=== PATIENT | male | born 1950 | race Caucasian/White ===

== ENCOUNTER → 2016-10-25 | Outpatient (CLI) | payer MEDICARE, OTHER | LOC: RAD 10:27 | PROVIDERS: ATTEND Orthopaedic Surgery | DX: M25.511 Pain in right shoulder (principal) ==

== ENCOUNTER 2017-01-12 09:29 | Emergency (ER) | payer MEDICARE, OTHER ==
[2017-01-12 09:36] VITALS: BP 141/79
--- NOTE | 2017-01-12 10:06 | ER Document Report ---
HPI - HPI Patient complains to provider of: Rash Onset: Last week Onset/Duration: Intermittent Pain Level: 2 Context: 66-year-old diabetic male started Lantus and has finally associated the itchy rash with Lantus. He takes oral medication for diabetes [place] When he went back for the first time they gave him a steroid shot and antihistamines which seemed to help. The second time when he told him he thought it was the Lantus they prescribed Khushboo Zantac and Singulair. The rash has persisted and can't stand the itching anymore. Associated Symptoms: None Exacerbated by: Denies Relieved by: Other - Steroid - ROS ROS below otherwise negative: Yes Systems Reviewed and Negative: Yes All other systems reviewed and negative - REPRODUCTIVE Reproductive: DENIES: : - DERM Skin Color: Normal Past Medical History - General Information source: Patient - Social History Smoking Status: Never Smoker Frequency of alcohol use: None Drug Abuse: None Lives with: Family Family History: Reviewed & Not Pertinent - Past Medical History Cardiac Medical History: Reports: Hx Heart Attack - "stress related" 2000, Hx Hypercholesterolemia, Hx Hypertension - 5 years-takes meds, Hx Heart Murmur - Pulmonary Medical History: Reports: Hx COPD - No problems since stopped smoking , Hx Pneumonia - "walking pneumonia" , Hx Sleep Apnea - CPAP Endocrine Medical History: Reports: Hx Diabetes Mellitus Type 2 Renal/ Medical History: Reports: Hx Kidney Stones GI Medical History: Reports: Hx Gastroesophageal Reflux Disease - 10 years- takes meds Musculoskeltal Medical History: Reports Hx Arthritis Psychiatric Medical History: Reports: Hx Post Traumatic Stress Disorder - " under control" Traumatic Medical History: Reports: Hx Fractures - right ankle Past Surgical History: Reports: Hx Herniorrhaphy - right inguinal, Hx Orthopedic Surgery - Right Knee and Right Ankle - Immunizations Hx Pneumococcal Vaccination: 02/15/14 Vertical Provider Document - CONSTITUTIONAL Agree With Documented VS: Yes Exam Limitations: No Limitations - INFECTION CONTROL TRAVEL OUTSIDE OF THE [place] IN LAST 30 DAYS: No - HEENT HEENT: Normocephalic. negative: Conjuctival Injection - NECK Neck: Supple - RESPIRATORY Respiratory: Breath Sounds Normal, No Respiratory Distress O2 Sat by Pulse Oximetry: 96 - CARDIOVASCULAR Cardiovascular: Regular Rate, Regular Rhythm - MUSCULOSKELETAL/EXTREMETIES Musculoskeletal/Extremeties: MAEW - NEURO Level of Consciousness: Awake, Alert, Appropriate - DERM Integumentary: Rash - drug rash trunk Course - Vital Signs Vital signs: Temp Pulse Resp BP Pulse Ox 98.5 F 83 20 141/79 H 96 01/12/17 09:36 01/12/17 09:36 01/12/17 09:36 01/12/17 09:36 01/12/17 09:36 Discharge - Discharge Clinical Impression: Drug rash Condition: Good Disposition: HOME, SELF-CARE Instructions: Use of Diphenhydramine, Steroid Medication, Acute Allergic Reaction to Drugs ([facility]) Additional Instructions: benadryl before bed is stronger than the khushboo that you take during the day strict diabetic diet this while on the steroid see your doctor on saturday as planned stop the lantus which you have already done to er any concerns Please complete the patient satisfaction survey if you get one, and return it.. If you do not receive a survey, then you can go to the [facility] website, [email or web address] and place your comments about your very good care. Thank you very much. It was a pleasure being your medical provider today. Prescriptions: Prednisone [Deltasone 10 mg Tablet] 10 mg PO ASDIR PRN #15 tablet PRN Reason:
[2017-01-12] MEDS ORDERED: PREDNISONE 20 MG TABLET PO ONE (10:20)
== END 2017-01-12 10:30 | disposition home or self-care (01) ==
LOC: ER 09:29
DX: R21 Rash and other nonspecific skin eruption (principal); E11.9 Type 2 diabetes mellitus without complications
CPT/HCPCS: 99283; 82962; A9270; J7512

== ENCOUNTER → 2019-05-19 | Outpatient (CLI) | payer MEDICARE, OTHER ==
--- NOTE | 2019-05-19 14:11 | RADIOLOGY REPORT (SQ) ---
EXAM DESCRIPTION: CAROTID DOPPLER COMPLETED DATE/TIME: 05/19/2019 1:56 pm REASON FOR STUDY: AMAUROSIS FUGAX G45.3 AMAUROSIS FUGAX COMPARISON: None. TECHNIQUE: Grayscale ultrasound, Doppler velocity and spectra, and color Doppler images acquired of the extra-cranial carotid and vertebral arteries. Images stored on PACS. LIMITATIONS: None. FINDINGS: RIGHT CAROTID CCA Velocities: Within normal limits. ICA Velocities Peak systolic 0.58 m/s. End diastolic 0.16 m/s. Proximal ICA/CCA peak systolic ratio 1.1. Spectral normal. No significant plaque. LEFT CAROTID CCA Velocities: Within normal limits. ICA Velocities Peak systolic 0.74 m/s. End diastolic 0.25 m/s. Proximal ICA/CCA peak systolic ratio 1.1. Spectra normal. No significant plaque. VERTEBRAL ARTERIES: Antegrade flow. Normal waveforms. SUBCLAVIAN ARTERIES: No finding. OTHER: No other significant finding. IMPRESSION: NO HEMODYNAMICALLY SIGNIFICANT STENOSIS. COMMENT: Quality ID #[id number]: Velocity criteria are extrapolated from the diameter data as defined by t he Society of Radiologists in Ultrasound Consensus Conference. Radiology 2003: 229; 340-346. TECHNICAL DOCUMENTATION: JOB ID: [id number] [employer]- All Rights Reserved Reading location - IP/workstation name: [email or web address]
== END ==
LOC: SP 12:12
PROVIDERS: ATTEND Ophthalmology
DX: G45.3 Amaurosis fugax (principal)
CPT/HCPCS: 93880

== ENCOUNTER 2019-06-20 15:12 | Emergency (ER) | payer MEDICARE, OTHER ==
[2019-06-20] MEDS ORDERED: ACETAMINOPHEN 325 MG TABLET PO ONE (16:52)
--- NOTE | 2019-06-20 17:17 | ER Document Report ---
HPI - HPI Time Seen by Provider: 06/20/19 16:48 Context: Patient is a 68-year-old male who presents emergency department with a chief complaint of left-sided rib pain. Patient had tripped over his feet and fell. He had his phone in his left breast pocket. States he fell on top of there. He states that when he takes a deep breath then, he has pain. He is currently on aspirin, but is not on Coumadin, Xarelto, or any other major blood thinners. Denies any loss of consciousness. Denies hitting his head. - CONSTITUTIONAL Constitutional: DENIES: Fever, Chills - EENT EENT: DENIES: Sore Throat, Ear Pain - NEURO Neurology: DENIES: Headache, Weakness - CARDIOVASCULAR Notes: Chest wall pain on left side - GASTROINTESTINAL Gastrointestinal: DENIES: Abdominal Pain, Nausea, Patient vomiting - REPRODUCTIVE Reproductive: DENIES: : Past Medical History - General Information source: Patient - Social History Smoking Status: Never Smoker Family History: Reviewed & Not Pertinent - Past Medical History Cardiac Medical History: Reports: Hx Heart Attack - "stress related" 2000, Hx Hypercholesterolemia, Hx Hypertension - 5 years-takes meds, Hx Heart Murmur - Denies: Hx Atrial Fibrillation, Hx Congestive Heart Failure, Hx Coronary Artery Disease, Hx Peripheral Vascular Disease, Hx Pulmonary Embolism Pulmonary Medical History: Reports: Hx COPD - No problems since stopped smoking, Hx Pneumonia - "walking pneumonia" , Hx Sleep Apnea - CPAP Denies: Hx Asthma, Hx Bronchitis, Hx Respiratory Failure, Hx Tuberculosis Endocrine Medical History: Reports: Hx Diabetes Mellitus Type 2. Denies: Hx Graves' Disease, Hx Hyperthyroidism, Hx Hypothyroidism Renal/ Medical History: Reports: Hx Kidney Stones. Denies: Hx Benign Prostatic Hyperplasia, Hx End Stage Renal Disease, Hx Peritoneal Dialysis Malignancy Medical History: Denies Hx Lung Cancer GI Medical History: Reports: Hx Gastroesophageal Reflux Disease - 10 years-takes meds. Denies: Hx Crohn's Disease, Hx Hiatal Hernia, Hx Liver Failure, Hx Pancreatitis, Hx Ulcer Musculoskeletal Medical History: Reports Hx Arthritis, Denies Hx Fibromyalgia, Denies Hx Muscular Dystrophy, Denies Hx Systemic Lupus Erythematosus Psychiatric Medical History: Reports: Hx Post Traumatic Stress Disorder - "under control" Denies: Hx Bipolar Disorder, Hx Depression, Hx Schizophrenia Traumatic Medical History: Reports: Hx Fractures - right ankle Past Surgical History: Reports: Hx Herniorrhaphy - right inguinal, Hx Orthopedic Surgery - Right Knee and Right Ankle. Denies: Hx Appendectomy, Hx Bowel Surgery, Hx Cholecystectomy, Hx Colostomy, Hx Coronary Artery Bypass Graft, Hx Gastric Bypass Surgery, Hx Pacemaker, Hx Tonsillectomy - Immunizations Hx Pneumococcal Vaccination: 02/15/14 Vertical Provider Document - CONSTITUTIONAL Agree With Documented VS: Yes Exam Limitations: No Limitations General Appearance: No Apparent Distress, Obese - INFECTION CONTROL TRAVEL OUTSIDE OF THE [place] IN LAST 30 DAYS: No - HEENT HEENT: Atraumatic, Normocephalic, PERRLA - NECK Neck: Normal Inspection - RESPIRATORY Respiratory: Breath Sounds Normal, No Respiratory Distress. negative: Chest Non-Tender - Tenderness to left anterior lateral rib, where patient fell - CARDIOVASCULAR Cardiovascular: Regular Rate, Regular Rhythm, No Murmur Pulses: Normal: Radial - GI/ABDOMEN Gastrointestinal: Abdomen Soft, Abdomen Non-Tender - MUSCULOSKELETAL/EXTREMETIES Musculoskeletal/Extremeties: FROM - NEURO Level of Consciousness: Awake, Alert, Appropriate Motor/Sensory: No Motor Deficit, No Sensory Deficit - DERM Integumentary: Warm, Dry, No Rash Course - Re-evaluation Re-evalutation: 06/20/19 18:28 Patient has a nondisplaced fracture of the left eighth lateral rib. No pneumothorax noted. I offered the patient pain medication he states that he does not want to take any pain medication with narcotics in it. I advised him to continue taking Tylenol for his pain. He is in agreement with this plan. He will follow-up with his primary care provider. Follow-up precautions were given. Verbal discharge instructions were given to the patient. They verbalized understanding. They are stable for discharge. - Vital Signs Vital signs: Temp Pulse Resp BP Pulse Ox 98.2 F 87 20 144/66 H 97 06/20/19 15:17 06/20/19 15:17 06/20/19 15:17 06/20/19 15:17 06/20/19 15:17 Discharge - Discharge Clinical Impression: Rib fracture Qualifiers: Encounter type: initial encounter Rib fracture type: single rib Fracture type: closed Laterality: left Qualified Code(s): S22.32XA - Fracture of one rib, left side, initial encounter for closed fracture Fall Qualifiers: Encounter type: initial encounter Qualified Code(s): W19.XXXA - Unspecified fall, initial encounter Condition: Stable Disposition: HOME, SELF-CARE Additional Instructions: You were seen today in the emergency department for a fall. You have a rib fracture. Rib fractures usually heal on their own. The most important thing is that you prevent pneumonia by using your incentive spirometer you have at home. Please take Tylenol 1000 mg every 6 hours for your pain. Follow-up with your primary care provider in regards to this visit. If you develop a fever, please return to the emergency department. Referrals: BLAYNE MONTIEL PA-C [NO LOCAL MD] - Follow up in 3-5 days [facility] [Provider Group] - Follow up in 3-5 days
--- NOTE | 2019-06-20 18:04 | RADIOLOGY REPORT (SQ) ---
EXAM DESCRIPTION: RIBS LEFT W/PA CHEST COMPLETED DATE/TIME: 06/20/2019 5:08 pm REASON FOR STUDY: fall; rib pain COMPARISON: None. TECHNIQUE: Frontal view of the chest and additional views of the left ribs acquired. NUMBER OF VIEWS: Six view. LIMITATIONS: None. FINDINGS: FRONTAL CXR: No pneumothorax. No pleural effusion. No atelectasis or infiltrates. RIBS: Nondisplaced fracture of the lateral left 8th rib. OTHER: No other significant finding. IMPRESSION: Nondisplaced fracture of the lateral left 8th rib. No pneumothorax. No acute abnormali ty of the lungs. COMMENT: SITE OF TRAUMA/COMPLAINT MARKED/STAMP COMPLETED: YES. TECHNICAL DOCUMENTATION: JOB ID: [id number] [employer]- All Rights Reserved Reading location - IP/workstation name: [email or web address]
[2019-06-20 19:01] VITALS: BP 140/62
== END 2019-06-20 18:35 | disposition home or self-care (01) ==
LOC: ER 15:12
DX: S22.32XA Fracture of one rib, left side, initial encounter for closed fracture (principal); W01.198A Fall on same level from slipping, tripping and stumbling with subsequent striking against other object, initial encounter; Y93.89 Activity, other specified; Y92.009 Unspecified place in unspecified non-institutional (private) residence as the place of occurrence of the external cause; I10 Essential (primary) hypertension; J44.9 Chronic obstructive pulmonary disease, unspecified; E11.9 Type 2 diabetes mellitus without complications; Z79.82 Long term (current) use of aspirin
CPT/HCPCS: 99283; 71101; A9270

== ENCOUNTER 2020-07-11 12:54 | Emergency (ER) | payer MEDICARE, OTHER ==
--- NOTE | 2020-07-11 15:25 | RADIOLOGY REPORT (SQ) ---
EXAM DESCRIPTION: RIBS LEFT W/PA CHEST IMAGES COMPLETED DATE/TIME: 07/11/2020 2:32 pm REASON FOR STUDY: injury COMPARISON: PA and oblique views of the left ribs from 06/20/2019. TECHNIQUE: AP view of the chest and PA and oblique views of the left ribs were obtained. NUMBER OF VIEWS: Five views. LIMITATIONS: None. FINDINGS: FRONTAL CXR: The cardiomediastinal silhouette and pulmonary vasculature are within normal limits. There is no consolidation, pleural effusion or pneumothorax. RIBS: There is re- demonstration of a nondisplaced fracture of the lateral left 8th rib. OTHER: No other finding. IMPRESSION: Re- demonstration of a nondisplaced fracture of the lateral left 8th rib. COMMENT: SITE OF TRAUMA/COMPLAINT MARKED/STAMP COMPLETED: NO. TECHNICAL DOCUMENTATION: JOB ID: [id number] 2010 [employer]- All Rights Reserved Reading location - IP/workstation name: [email or web address]
--- NOTE | 2020-07-11 15:34 | ER Document Report ---
HPI - HPI Patient complains to provider of: Left rib pain Time Seen by Provider: 07/11/20 13:57 Pain Level: 0 Context: 69-year-old male with a history of a previous left rib fracture presents to the emergency room complaining of worsening rib pain after falling 2 weeks ago after he slipped in water falling forward and injuring his left lower anterior ribs. States the pain is persistent worse increases with moving. States it hurts to take a deep breath but he denies any dyspnea. Has pain medication at home but has not been taking it. Patient states he came to the emergency room because he was having worsening pain. Denies chest pain, denies shortness of breath, denies any difficulty breathing patient also states that he has been using his incentive spirometer with some relief Associated Symptoms: None Exacerbated by: Movement, Deep breathing Relieved by: Remaining still Similar symptoms previously: Yes - Previous rib fracture a little over a year Recently seen / treated by doctor: No - ROS Systems Reviewed and Negative: Yes All other systems reviewed and negative - CONSTITUTIONAL Constitutional: DENIES: Fever - NEURO Neurology: DENIES: Weakness - CARDIOVASCULAR Cardiovascular: DENIES: Chest pain - L anterior lower rib - RESPIRATORY Respiratory: DENIES: Trouble Breathing, Coughing - GASTROINTESTINAL Gastrointestinal: DENIES: Abdominal Pain - REPRODUCTIVE Reproductive: DENIES: : - MUSCULOSKELETAL Musculoskeletal: DENIES: Back Pain - DERM Skin Color: Normal Skin Problems: None Past Medical History - General Information source: Patient - Social History Smoking Status: Former Smoker Chew tobacco use (# tins/day): No Frequency of alcohol use: None Drug Abuse: None Family History: Reviewed & Not Pertinent - Past Medical History Cardiac Medical History: Reports: Hx Heart Attack - "stress related" 2000, Hx Hypercholesterolemia, Hx Hypertension - 5 years-takes meds, Hx Heart Murmur - Denies: Hx Atrial Fibrillation, Hx Congestive Heart Failure, Hx Coronary Artery Disease, Hx Peripheral Vascular Disease, Hx Pulmonary Embolism Pulmonary Medical History: Reports: Hx COPD - No problems since stopped smoking, Hx Pneumonia - "walking pneumonia" , Hx Sleep Apnea - CPAP Denies: Hx Asthma, Hx Bronchitis, Hx Respiratory Failure, Hx Tuberculosis Endocrine Medical History: Reports: Hx Diabetes Mellitus Type 2. Denies: Hx Graves' Disease, Hx Hyperthyroidism, Hx Hypothyroidism Renal/ Medical History: Reports: Hx Kidney Stones. Denies: Hx Benign Prostatic Hyperplasia, Hx End Stage Renal Disease, Hx Peritoneal Dialysis Malignancy Medical History: Denies Hx Lung Cancer GI Medical History: Reports: Hx Gastroesophageal Reflux Disease - 10 years-takes meds. Denies: Hx Crohn's Disease, Hx Hiatal Hernia, Hx Liver Failure, Hx Pancreatitis, Hx Ulcer Musculoskeletal Medical History: Reports Hx Arthritis, Denies Hx Fibromyalgia, Denies Hx Muscular Dystrophy, Denies Hx Systemic Lupus Erythematosus Psychiatric Medical History: Reports: Hx Post Traumatic Stress Disorder - "under control" Denies: Hx Bipolar Disorder, Hx Depression, Hx Schizophrenia Traumatic Medical History: Reports: Hx Fractures - right ankle Past Surgical History: Reports: Hx Herniorrhaphy - right inguinal, Hx Orthopedic Surgery - Right Knee and Right Ankle. Denies: Hx Appendectomy, Hx Bowel Surgery, Hx Cholecystectomy, Hx Colostomy, Hx Coronary Artery Bypass Graft, Hx Gastric Bypass Surgery, Hx Pacemaker, Hx Tonsillectomy - Immunizations Hx Pneumococcal Vaccination: 02/15/14 Vertical Provider Document - CONSTITUTIONAL Agree With Documented VS: Yes Exam Limitations: No Limitations General Appearance: Mild Distress - INFECTION CONTROL TRAVEL OUTSIDE OF THE [place] IN LAST 30 DAYS: No - HEENT HEENT: Atraumatic, Normocephalic - NECK Neck: Normal Inspection, Supple - RESPIRATORY Respiratory: Breath Sounds Normal, No Respiratory Distress Notes: Tenderness on palpation to the left lower anterior ribs. No obvious deformity palpated - CARDIOVASCULAR Cardiovascular: Regular Rate, Regular Rhythm, No Murmur - GI/ABDOMEN Gastrointestinal: Abdomen Soft, Abdomen Non-Tender, No Organomegaly. negative: Abdominal Guarding, Abdominal Rebound - BACK Back: Normal Inspection. negative: CVA Tenderness-Right, CVA Tenderness-Left - NEURO Level of Consciousness: Awake, Alert, Appropriate Motor/Sensory: No Motor Deficit, No Sensory Deficit - DERM Integumentary: Warm, Dry Notes: Ecchymosis noted to the left lateral anterior lower ribs Course - Re-evaluation Re-evalutation: 07/11/20 15:36 Patient is resting comfortably. Reviewed x-ray results with patient. Reviewed that there are no acute fractures. Eighth rib fracture but it is not displaced. No pneumothorax. Patient was counseled to continue use of his incentive spirometer as he has been using it his pain medications as needed. Follow-up with his primary care physician if symptoms persist more than a week. Patient was given strict return to the emergency room guidelines. Return for any new or worsening symptoms. All questions were answered. Patient verbalized understanding and agrees with plan of care. 07/11/20 15:45 - Vital Signs Vital signs: Temp Pulse Resp BP Pulse Ox 98.2 F 70 22 H 154/68 H 95 07/11/20 13:18 07/11/20 13:18 07/11/20 13:18 07/11/20 13:18 07/11/20 13:18 - Laboratory Results Critical Laboratory Results Reviewed: No Critical Results - Radiology Results Critical Radiology Results Reviewed: No Critical Results Discharge - Discharge Clinical Impression: Left rib fracture Qualifiers: Encounter type: initial encounter Rib fracture type: single rib Fracture type: closed Qualified Code(s): S22.32XA - Fracture of one rib, left side, initial encounter for closed fracture Condition: Stable Disposition: HOME, SELF-CARE Instructions: Rib Injuries and Fractures ([facility]) Additional Instructions: Continue use of your incentive spirometer. Take your pain medication as needed. Follow-up with your primary care physician if symptoms persist more than 1 week. Return to the emergency room for any new or worsening symptoms Referrals: SANDRA,NO [Primary Care Provider] - Follow up as needed
[2020-07-11 15:47] VITALS: BP 141/68
== END 2020-07-11 15:46 | disposition home or self-care (01) ==
LOC: ER 12:54
DX: S22.32XA Fracture of one rib, left side, initial encounter for closed fracture (principal); W01.0XXA Fall on same level from slipping, tripping and stumbling without subsequent striking against object, initial encounter; Y92.008 Other place in unspecified non-institutional (private) residence as the place of occurrence of the external cause; Z87.891 Personal history of nicotine dependence; I10 Essential (primary) hypertension; J44.9 Chronic obstructive pulmonary disease, unspecified; E11.9 Type 2 diabetes mellitus without complications
CPT/HCPCS: 99283